=== PATIENT | female | born 1980 | race Caucasian/White ===

== ENCOUNTER 2017-01-17 11:13 | Emergency (ER) | payer OTHER ==
[~2017-01-17] VITALS: Ht 157.5 cm; Wt 75.0 kg
[~2017-01-17 11:13] MED LIST: ONDA4TAB10 SL; OXYC-57 PO
[2017-01-17 11:20] VITALS: TEMP 36.7; Ht 157.5 cm; Wt 75.0 kg
--- NOTE | 2017-01-17 12:15 | DIAGNOSTIC IMAGING REPORT ---
SACRUM COCCYX MIN 2 VIEWS CLINICAL HISTORY: Sacral coccygeal pain status post trauma COMPARISON STUDY: CT scan of the abdomen pelvis dated 09/26/2016 FINDINGS: No fractures are visualized. No destructive lesions are evident. There is no evidence of SI joint fusion. There is slight indistinctness of the left SI joint, but no erosive changes are visualized in this area on the CT scan dated 09/26/2016 IMPRESSION: No acute fractures. Electronically signed by: Ravi Warner M.D. 01/17/2017 12:14 PM Dictated Date/Time: 01/17/2017 12:12 PM
--- NOTE | 2017-01-17 12:15 | DIAGNOSTIC IMAGING REPORT ---
LUMBAR SPINE 5 VIEWS HISTORY: Trauma. Pain. fall, low back and tailbone pain COMPARISON: None. FINDINGS: There is no fracture. No subluxation. Disc spaces are preserved. IMPRESSION: No fracture or subluxation within the lumbar spine. Electronically signed by: Chapito Gallardo M.D. 01/17/2017 12:14 PM Dictated Date/Time: 01/17/2017 12:13 PM
[2017-01-17] MEDS ORDERED: HYDR-5688 PO (12:27)
--- NOTE | 2017-01-17 12:29 | EMERGENCY ROOM VISIT NOTE ---
ED Visit Note First contact with patient: 11:33 CHIEF COMPLAINT: Tailbone pain HISTORY OF PRESENT ILLNESS: This 36-year-old female patient presents to the emergency department ambulatory complaining of pain in the tailbone after a fall which occurred last night. The patient states that she was walking downstairs in the dark when she missed a step, landing onto her back and tailbone. She reports she did not hit her head and denies any other injuries. The patient rates the pain as sharp and 8/10. The patient has taken ibuprofen for the pain without relief. The patient does note that she had a tailbone injury approximately 2 years ago. The patient has not yet had a bowel movement. The patient has not had difficulty with bowel or bladder functions. The patient able to walk and denies numbness or tingling to the lower extremities. REVIEW OF SYSTEMS: A 6 system review of systems was completed with positives and pertinent negatives listed in the HPI. ALLERGIES: Amoxicillin MEDICATIONS: No chronic medications PMH: No significant past medical history. SOCIAL HISTORY: The patient lives locally with her sister. Nonsmoker, does admit to occasional alcohol use. PHYSICAL EXAM: VITALS: Vitals are noted on the nurse's note and reviewed by myself. Vital signs stable. GENERAL: This is a 36-year-old female, in no acute distress, nondiaphoretic, well-developed well-nourished. MUSCULOSKELETAL: The patient is tender to palpation over the coccyx. There is tenderness over the sacrum. There is mild tenderness with palpation over the lower lumbar spine. No tenderness of the thoracic or cervical spine. No erythema, edema, or abscesses present. Full range of motion of the bilateral lower extremities. Strength 5/5 and equal in the bilateral lower extremities. Peripheral pulses 2+. NEURO: Patient was alert and oriented to person place and time. Normal sensation to light and sharp touch. No focal neurologic deficits. EMERGENCY DEPARTMENT COURSE: The patient was evaluated as above. She was given 1 tablet Irving for pain. X-rays of the lumbar spine and sacrum/coccyx were performed and read by radiology with no acute findings. The patient was informed of all findings. Conservative measures were discussed. I encouraged her to get a doughnut to sit on to help relieve tailbone pain. She was given a short course of Irving for pain and encouraged to follow-up with her primary care provider. The [place] prescription drug monitoring program was queried and no red flags were identified. The patient verbalized understanding of my assessment and treatment plan and was discharged home in good condition. DIAGNOSIS: Contusion of coccyx Problem List Medical Problems: (1) Urinary tract infection Status: Resolved Current/Historical Medications Scheduled PRN Hydrocodone/Acetaminophen 5MG/325MG (Irving 5MG/325MG), 1-2 TABLET PO Q4H PRN for Pain Ibuprofen (Ibu-200), 2 TAB PO QID PRN for Pain Allergies Coded Allergies: Amoxicillin (Verified Allergy, Unknown, vomiting, 01/17/17) Vital Signs Date Time Temp Pulse Resp B/P Pulse Ox O2 Delivery O2 Flow Rate FiO2 01/17/17 12:47 68 16 99/60 97 01/17/17 11:20 36.7 89 18 115/80 95 Room Air Medications Administered Medications (Trade) Dose Ordered Sig/Dottie Route Start Time Stop Time Status Last Admin Dose Admin Acetaminophen/ Hydrocodone Bitart (Irving 5/325 Tab) 1 tab NOW STAT PO 01/17/17 12:39 01/17/17 12:40 DC 01/17/17 12:43 1 TAB Departure Information Impression Primary Impression: Contusion of coccyx Dispostion Home / Self-Care Condition GOOD Prescriptions Hydrocodone/Acetaminophen 5MG/325MG (Irving 5MG/325MG) Tab 1-2 TABLET PO Q4H Y for Pain, #10 TAB For Initial Treatment Prov: Cherri Hanson PA-C 01/17/17 Referrals No Doctor, Assigned (PCP) Patient Instructions My [facility] [address] Additional Instructions You have been treated in the Emergency Department for Back/tailbone Pain. You have been prescribed Irving to be used for pain control. This is a narcotic medication. You cannot drive or consume alcohol while on this medicine. This medicine should only be used for pain that cannot be controlled with over-the- counter pain medicines. For pain control, you can use the following [id number] medicines (if >12 yo): - Regular strength (325mg/tab) Tylenol (acetaminophen) 2 tabs every 4-6 hours as needed. Do not exceed 12 tablets in a 24 hour period. Avoid taking more than 4 grams (4000 mg) of Tylenol per day. This includes any other sources of acetaminophen you may take on a regular basis. - Regular strength (200 mg/tab) Advil (ibuprofen) 1-2 tabs every 4-6 hours as needed. Do not exceed a dose of 3200 mg per day. If this is an acute injury, ice can be applied to the area of pain for the first 3 days to help decrease pain and inflammation. After the first 3 days, a heating pad can be used over the area for continued soothing relief. You should schedule a follow-up appointment in 2-3 days with your Primary Care Provider for further evaluation and treatment of your back pain. You can find a donut at any pharmacy. Sitting on this will help relieve your tailbone pain. Return to the Emergency Department if your current symptoms worsen despite treatment course outlined above, or if you develop any of the following symptoms : intractable pain despite aforementioned treatment course, loss of control of your bowel or bladder, numbness or tingling in your groin, or development of a fever. Problem Qualifiers Primary Impression: Contusion of coccyx Encounter type: initial encounter Qualified Codes: S30.0XXA - Contusion of lower back and pelvis, initial encounter
[2017-01-17] MEDS ORDERED: HYDROCODONE/ACETAMOPHEN 5/325MG TAB PO STA (12:39)
[2017-01-17 12:47] VITALS: BP 99/60; PULSE 68; O2SAT 97
[2017-01-21] MEDS ORDERED: IBUP200T80 PO (11:31)
== END 2017-01-17 12:49 | disposition home or self-care (01) ==
LOC: C.EDB 11:14 → C.EDD 12:49
DX: S30.0XXA Contusion of lower back and pelvis, initial encounter (principal); W10.8XXA Fall (on) (from) other stairs and steps, initial encounter; Z87.440 Personal history of urinary (tract) infections; Z88.1 Allergy status to other antibiotic agents

== ENCOUNTER 2017-01-21 13:11 | Emergency (ER) | payer OTHER ==
[~2017-01-21] VITALS: Ht 157.5 cm; Wt 77.8 kg
[~2017-01-21 13:11] MED LIST changes: +HYDR-5688 PO; +IBUP200T80 PO; -ONDA4TAB10 SL; -OXYC-57 PO
[2017-01-21 13:29] VITALS: BP 102/71; TEMP 36.8; Ht 157.5 cm; Wt 77.8 kg
[2017-01-21] MEDS ORDERED: HYDR-5688 PO (14:06)
--- NOTE | 2017-01-21 14:07 | EMERGENCY ROOM VISIT NOTE ---
ED Visit Note First contact with patient: 13:33 CHIEF COMPLAINT: Tailbone pain HISTORY OF PRESENT ILLNESS: This 36-year-old female patient presents to the emergency department ambulatory complaining of pain in the tailbone which began on when she slipped and fell at home. The pain was gradual in onset, is now constant and worse with movement. The patient notes the pain as sharp and a 9/10. The patient has taken Iva with no relief of the pain. The patient denies any bowel or bladder difficulties. There has been no leg numbness or weakness, and no change in sensation. No nausea or vomiting or abdominal pain. No chest pain or shortness of breath. The patient has not had prior back injuries. The patient was seen here after the injury and had normal x-rays of the lumbar spine and coccyx. REVIEW OF SYSTEMS: No dysuria or increased urinary frequency. A 10 system review of systems was completed and pertinent positives and negatives are in the HPI. ALLERGIES: Amoxicillin MEDICATIONS: None PMH: None SOCIAL HISTORY: The patient is employed. She does not smoke. PHYSICAL EXAM: VITALS: Vitals are noted on the nurse's note and reviewed by myself. No abnormalities noted. GENERAL: This is a 36-year-old female, in no acute distress, nondiaphoretic, well-developed well-nourished. SKIN: The skin was without rashes, erythema, edema, or bruising. Capillary refill less than 2 seconds. NECK: Supple without nuchal rigidity. No cervical spine tenderness. No paraspinous muscle tenderness. HEART: Regular rate and rhythm without murmurs gallops or rubs. LUNGS: Clear to auscultation bilaterally without wheezes, rales or rhonchi. MUSCULOSKELETAL: No muscle atrophy, erythema, or edema noted of the back. There is no tenderness over the lumbar spinous processes. There is no tenderness over the paraspinous muscles. There is no tenderness over the thoracic spine or paraspinous muscles. There are no muscle spasms present. There is marked tenderness to palpation over the coccyx. The patient is slow to move around with maximum tenderness with sitting. Negatives straight leg raise test. NEURO: Patient was alert and oriented to person place and time. Normal sensation to light and sharp touch. Deep tendon reflexes 2+ in the lower extremities. Dorsalis pedis pulse 2+ bilaterally. Strength is 5/5 in the lower extremities bilaterally. EMERGENCY DEPARTMENT COURSE: The patient was seen and examined. Previous visits were reviewed. The patient states that she has not been able to work due to the severe pain and she finished her pain medication last night. She has not had any neurologic deficit on exam or by history. There is no evidence for infection or pilonidal abscess. The patient is well-appearing without fever. The patient will be given a small prescription for Iva and a note for work. She should follow-up with her family doctor by the end of the week if symptoms are not improving. She should return sooner with worsening symptoms. DIFFERENTIAL DIAGNOSIS: Lumbar strain, degenerative disc disease, spondylolisthesis, herniated disc, spinal stenosis, osteoporosis, fracture, cauda equina syndrome, neoplasm, infection, inflammatory arthritis, among others. Problem List Medical Problems: (1) Urinary tract infection Status: Resolved Current/Historical Medications Scheduled PRN Hydrocodone/Acetaminophen 5MG/325MG (Iva 5MG/325MG), 1-2 TABLET PO Q4H PRN for Pain Hydrocodone/Acetaminophen 5MG/325MG (Iva 5MG/325MG), 1 TABLET PO Q6 PRN for Pain Ibuprofen (Ibu-200), 2 TAB PO QID PRN for Pain Allergies Coded Allergies: Amoxicillin (Verified Allergy, Unknown, vomiting, 01/17/17) Cephalexin (Unverified Allergy, Unknown, NAUSEA, 01/21/17) Vital Signs Date Time Temp Pulse Resp B/P Pulse Ox O2 Delivery O2 Flow Rate FiO2 01/21/17 14:17 80 16 99 01/21/17 13:29 36.8 66 18 102/71 97 Room Air Departure Information Impression Primary Impression: Coccyx contusion Dispostion Home / Self-Care Condition GOOD Prescriptions Hydrocodone/Acetaminophen 5MG/325MG (Iva 5MG/325MG) Tab 1 TABLET PO Q6 Y for Pain, #12 TAB For Initial Treatment Prov: Melanie Dao PA-C 01/21/17 Referrals No Doctor, Assigned (PCP) Forms HOME CARE DOCUMENTATION FORM, IMPORTANT VISIT INFORMATION, Work Instructions Return To Work: 2 days Patient Instructions ED Contusion Sacrum Coccyx, My [facility] Additional Instructions Rest Ibuprofen 600 mg every 6-8 hours or moderate pain Iva 1 tablet every 6 hours if needed for worse pain. Do not drink or drive while taking Iva and do not take with Tylenol. Follow up with your family doctor later this week if symptoms are not improving. Return sooner with worsening symptoms.
[2017-01-21 14:17] VITALS: PULSE 80; O2SAT 99
== END 2017-01-21 14:18 | disposition home or self-care (01) ==
LOC: C.EDB 13:12 → C.EDD 14:18
DX: S30.0XXA Contusion of lower back and pelvis, initial encounter (principal); W01.0XXA Fall on same level from slipping, tripping and stumbling without subsequent striking against object, initial encounter; Y92.019 Unspecified place in single-family (private) house as the place of occurrence of the external cause; Z87.440 Personal history of urinary (tract) infections; Z88.1 Allergy status to other antibiotic agents; Z88.8 Allergy status to other drugs, medicaments and biological substances